=== PATIENT | male | born 2000 | race Asian ===

== ENCOUNTER 2022-03-10 09:24 | Day surgery (SDC) | payer OTHER ==
[~2022-03-10] VITALS: Ht 172.7 cm; Wt 57.2 kg
[2022-03-10 08:05] LABS: BASOPHILS % (AUTO) 0.7 % (0.0-2.0); EOSINOPHILS % (AUTO) 0.1 % (0.0-4.0); HEMATOCRIT 52.8 % (36-52); HEMOGLOBIN 17.6 g/dL (12.0-18.0); LYMPHOCYTES # (AUTO) 1.8 K/uL (2.0-11.5); LYMPHOCYTES % (AUTO) 34.7 % (20.5-51.1); MEAN CORPUSCULAR HEMOGLOBIN 31 pg (27-31); MEAN CORPUSCULAR HGB CONC 33 g/dL (33-37); MEAN CORPUSCULAR VOLUME 93.5 fL (80-94); MONOCYTES # (AUTO) 0.8 K/uL (0.8-1.0); MONOCYTES % (AUTO) 15.1 % (1.7-9.3); NEUTROPHILS # (AUTO) 2.5 K/uL (1.8-7.7); NEUTROPHILS % (AUTO) 49.4 % (42.2-75.2); PLATELET COUNT (AUTO) 172 K/uL (140-450); RED BLOOD CELL COUNT(AUTO) 5.64 MIL/uL (4.20-6.10); WHITE BLOOD COUNT (AUTO) 5.2 K/uL (4.8-10.8)
[2022-03-10 08:25] LABS: ALBUMIN 3.6 g/dL (3.4-5.0); ANION GAP 15.2 (8-16); ASPARTATE AMINOTRANSFERASE 22 U/L (15-37); CARBON DIOXIDE 27.2 mmol/L (21-32); CHLORIDE 101 mmol/L (98-107); CREATININE 0.7 mg/dL (0.6-1.3); GFR ARICAN-AMERICAN 181 mL/min (>90); GLUCOSE 80 mg/dL (74-106); POTASSIUM 4.4 mmol/L (3.5-5.1); SODIUM SERUM 139 mmol/L (136-145); TOTAL BILIRUBIN 0.6 mg/dL (0.0-1.0); UREA NITROGEN, BLOOD 13 mg/dL (7-18)
--- NOTE | 2022-03-10 09:25 | NUR ---
Pt brought from OR via gurney to bed 10.
[2022-03-10 09:41] VITALS: BP 109/68
--- NOTE | 2022-03-10 09:42 | NUR ---
21/M SHAZIA TRANSPORTED FROM OR D/T ABNORMAL EKG NOTED DURING PROCEDURE FOR PEG TUBE PLACEMENT FOR FEEDING. PER OR NURSE, EKG WAS DONE AND SHOWED STEMI. PT DENIES ANY CP, VITALS STABLE DURING OR. PT HAS HX HEART SX AN INFANT. EKG PERFORMED X2 AT BEDSIDE, SHOWED SR. IV ALREADY ESTABLISHED IN OR ON LEFT HAND 22G. ON MONITOR. DAD AND BROTHER AT BEDSIDE.
--- NOTE | 2022-03-10 09:55 | NUR ---
BLOOD DRAWN. XR AT BEDSIDE
[2022-03-10 10:07] LABS: BASOPHILS % (AUTO) 0.7 % (0.0-2.0); EOSINOPHILS % (AUTO) 0.2 % (0.0-4.0); HEMATOCRIT 52.7 % (36-52); HEMOGLOBIN 17.6 g/dL (12.0-18.0); LYMPHOCYTES # (AUTO) 1.8 K/uL (2.0-11.5); LYMPHOCYTES % (AUTO) 28.4 % (20.5-51.1); MEAN CORPUSCULAR HEMOGLOBIN 31 pg (27-31); MEAN CORPUSCULAR HGB CONC 34 g/dL (33-37); MEAN CORPUSCULAR VOLUME 92.9 fL (80-94); MONOCYTES # (AUTO) 0.9 K/uL (0.8-1.0); MONOCYTES % (AUTO) 14.3 % (1.7-9.3); NEUTROPHILS # (AUTO) 3.6 K/uL (1.8-7.7); NEUTROPHILS % (AUTO) 56.4 % (42.2-75.2); PLATELET COUNT (AUTO) 160 K/uL (140-450); RED BLOOD CELL COUNT(AUTO) 5.67 MIL/uL (4.20-6.10); RED CELL DISTRIBUTION WIDTH 12.8 % (11.6-13.7); WHITE BLOOD COUNT (AUTO) 6.4 K/uL (4.8-10.8)
[2022-03-10 10:27] LABS: ALBUMIN 3.4 g/dL (3.4-5.0); ANION GAP 14.7 (8-16); CARBON DIOXIDE 25.9 mmol/L (21-32); CREATININE 0.7 mg/dL (0.6-1.3); POTASSIUM 4.6 mmol/L (3.5-5.1); TOTAL BILIRUBIN 0.6 mg/dL (0.0-1.0)
--- NOTE | 2022-03-10 10:40 | NUR ---
RT CALLED TO BEDSIDE TO CHECK O2 SATURATION OF PT. RN WANTED TO MAKE SURE READING WAS ACCURATE. RT CHANGE O2 PROBE AND PT WAS WAS SATING 94% ON 4L NC. BUBBLE HUMIDIFIER WAS PLACED BY RT AT THIS TIME. RN AWARE . PT HAD NO DISTRESS NOTED.
--- NOTE | 2022-03-10 12:02 | NUR ---
Emergency contact number Emeka: [phone]
--- NOTE | 2022-03-10 12:34 | NUR ---
pt was taken to OR at this time
[2022-03-10] MEDS ORDERED: MIDAZOLAM 2 MG/2 ML VIAL ONE (12:48)
[2022-03-10] MEDS ORDERED: fentaNYL citrate 0.05 MG/ML VIAL ONE (12:52)
[2022-03-10] MEDS ORDERED: PROPOFOL 200 MG/20 ML VIAL IV ONE (14:16)
[2022-03-10] MEDS ORDERED: ONDANSETRON 4 MG/2 ML VIAL IVP PRN (14:30)
== END 2022-03-10 16:05 | disposition home or self-care (01) ==
LOC: MED 09:24 → MDS 12:26
PROVIDERS: ATTEND Internal Medicine Gastroenterology
DX: R63.30 Feeding difficulties, unspecified (principal); Z20.822 Contact with and (suspected) exposure to COVID-19; G40.909 Epilepsy, unspecified, not intractable, without status epilepticus; Z79.899 Other long term (current) drug therapy
CPT/HCPCS: 36415; 43246; 71045; 80053; 83880; 84484; 85025; 87426; 93005; J2250; J2704; J3010; J7030; Q0092